=== PATIENT | male | born 1985 | race Two or more races ===

== ENCOUNTER 2017-03-21 00:45 | Emergency (ER) | payer SELFPAY ==
[~2017-03-21] VITALS: Ht 175.3 cm; Wt 81.0 kg
[2017-03-21 00:55] VITALS: BP 0/0
[2017-03-21] MEDS ORDERED: KETOROLAC 30MG/ML VIAL IV ONE (02:45)
== END 2017-03-21 04:20 | disposition home or self-care (01) ==
LOC: ER 00:45
DX: S63.8X9A Sprain of other part of unspecified wrist and hand, initial encounter (principal); S62.304A Unspecified fracture of fourth metacarpal bone, right hand, initial encounter for closed fracture; Y35.893A Legal intervention involving other specified means, suspect injured, initial encounter; Y93.89 Activity, other specified; Y92.410 Unspecified street and highway as the place of occurrence of the external cause; Z78.1 Physical restraint status; Z59.0 Homelessness
CPT/HCPCS: 73130; 99284; J1885; Z7610